=== PATIENT | female | born 1990 | race Caucasian/White ===

== ENCOUNTER 2020-03-26 11:51 | Inpatient (IN) | payer MEDICAID, OTHER ==
[~2020-03-26] VITALS: Ht 167.6 cm; Wt 91.9 kg
[~2020-03-26 11:51] MED LIST: GABA-1181 PO; QUET100T PO
[2020-03-26 12:42] LABS: BASOPHILS % (AUTO) 0.9 % (0.0-2.0); EOSINOPHILS % (AUTO) 0.8 % (1.0-6.0); HEMATOCRIT 42.2 % (36-46); HEMOGLOBIN 14.3 g/dL (12.0-16.0); LYMPHOCYTES # (AUTO) 2.3 K/uL (1.0-4.8); LYMPHOCYTES % (AUTO) 27.6 % (22.0-44.0); MEAN CORPUSCULAR HEMOGLOBIN 29.7 pg (26.0-34.0); MEAN CORPUSCULAR VOLUME 88 fL (80-100); MONOCYTES # (AUTO) 0.4 K/uL (0.1-1.0); NEUTROPHILS # (AUTO) 5.4 K/uL (1.8-7.7); NEUTROPHILS % (AUTO) 65.7 % (40.0-70.0); PLATELET COUNT (AUTO) 409 K/uL (150-450); RED BLOOD CELL COUNT(AUTO) 4.82 MIL/uL (4.00-5.20); RED CELL DISTRIBUTION WIDTH 12.7 % (11.5-14.5)
[2020-03-26 12:48] LABS: AMPHET/METH SCREEN,URINE NEGATIVE (NEGATIVE); BARBITURATE SCREEN, URINE NEGATIVE (NEGATIVE); BENZODIAZEPINES SCREEN,URINE NEGATIVE (NEGATIVE); CANNABINOID SCREEN,URINE POSITIVE (NEGATIVE); COCAINE SCREEN,URINE NEGATIVE (NEGATIVE); METHADONE SCREEN, URINE NEGATIVE (NEGATIVE); OPIATE SCREEN,URINE NEGATIVE (NEGATIVE)
[2020-03-26 12:50] LABS: PHENCYCLIDINE SCREEN,URINE NEGATIVE (NEGATIVE)
[2020-03-26 12:51] LABS: ANION GAP 9 mmol/L (8-16); CALCIUM, TOTAL 8.5 mg/dL (8.8-10.5); CARBON DIOXIDE 26 mmol/L (22-29); CHLORIDE 100 mmol/L (98-107); CREATININE 0.48 mg/dL (0.60-1.30); GLOMERULAR FILTR. RATE CALC > 60 mL/min (>60); GLUCOSE,RANDOM 107 mg/dL (70-110); POTASSIUM 4.3 mmol/L (3.5-5.1); SODIUM SERUM 135 mmol/L (136-145); UREA NITROGEN, BLOOD 7 mg/dL (7-18)
[2020-03-26 12:57] LABS: ALANINE AMINOTRANSFERASE 32 U/L (12-78); ALBUMIN 3.9 g/dL (3.4-5.0); ALKALINE PHOSPHATASE 103 U/L (46-116); ASPARTATE AMINOTRANSFERASE 18 U/L (15-37); BILIRUBIN,TOTAL 0.2 mg/dL (0.1-1.0); TOTAL PROTEIN, SERUM 8.1 g/dL (6.4-8.2)
[2020-03-26] MEDS ORDERED: GABAPENTIN 100 MG CAPSULE PO ONE (13:00)
[2020-03-26] MEDS ORDERED: CarBAMazepine 200 MG TABLET PO ONE (13:00)
[2020-03-26] MEDS ORDERED: OXcarbazepine 300 MG TABLET PO ONE ×2 (13:30→20:10)
[2020-03-26] MEDS ORDERED: ACETAMINOPHEN 325 MG TABLET PO ONE (14:45)
[2020-03-26] MEDS ORDERED: ALPRAZolam 0.5 MG TABLET PO ONE (14:45)
[2020-03-26] MEDS ORDERED: HALOPERIDOL 5 MG TABLET PO PRN (14:45)
[2020-03-26 15:25] LABS: HCG,QUANTITATIVE < 1 mIU/mL (0-6)
[2020-03-26 15:27] LABS: ACETAMINOPHEN < 2 mcg/mL (10-30)
[2020-03-26 16:10] VITALS: BP 147/95
[2020-03-26] MEDS: LORazepam 2 MG TABLET PO PRN ×2 (16:44→20:46)
[2020-03-26] MEDS ORDERED: PNEUMOCOCCAL VACCINE POLYVALENT 0.5 ML VIAL [PPSV23] IM ONE (16:45)
[2020-03-26] MEDS ORDERED: ACETAMINOPHEN 325 MG TABLET PO PRN (17:00)
[2020-03-26] MEDS ORDERED: MAG HYDROX/AL HYDROX/SIMETH ES 30 ML SUSPENSION UDCUP PO PRN (17:00)
[2020-03-26] MEDS ORDERED: ONDANSETRON HCL 4 MG TABLET PO PRN (17:00)
[2020-03-26] MEDS ORDERED: PETROLATUM,WHITE 28 GM JELLY TP PRN (17:00)
[2020-03-26] MEDS ORDERED: GuaiFENesin/D-METHORPHAN [SUGAR-FREE] 200-20MG/10 ML SYRUP UDCUP PO PRN (17:00)
[2020-03-26] MEDS ORDERED: NICOTINE 14 MG/24 HOUR PATCH TD PRN (17:00)
[2020-03-26] MEDS ORDERED: CloNIDine HCL 0.1 MG TABLET PO PRN (17:00)
[2020-03-26] MEDS ORDERED: ALBUTEROL SULFATE HFA 90 MCG/PUFF 8 GM INHALER IH PRN (17:00)
[2020-03-26] MEDS ORDERED: DOCUSATE SODIUM 100 MG CAPSULE PO PRN (17:00)
[2020-03-26] MEDS ORDERED: LOPERAMIDE HCL 2 MG CAPSULE PO PRN (17:00)
[2020-03-26] MEDS ORDERED: MAGNESIUM HYDROXIDE SUSPENSION 30 ML UDCUP PO PRN (17:00)
[2020-03-26] MEDS: NICOTINE 21 MG/24 HOUR PATCH TD SCH (17:13)
[2020-03-26] MEDS ORDERED: MIRT-89 PO (17:17)
[2020-03-26] MEDS ORDERED: OXCA300T57 PO (17:17)
[2020-03-26] MEDS ORDERED: HALO10 PO (17:17)
[2020-03-26] MEDS ORDERED: GABA-1181 PO (17:17)
[2020-03-26] MEDS ORDERED: TRAZ150T79 PO (17:17)
[2020-03-26] MEDS: GABAPENTIN 300 MG CAPSULE PO SCH (20:22)
[2020-03-26] MEDS: ZOLPIDEM TARTRATE 10 MG TABLET PO PRN (23:44)
[2020-03-27 00:01] VITALS: BP 141/92
[2020-03-27 07:54] LABS: EOSINOPHILS % (AUTO) 1.1 % (1.0-6.0); HEMATOCRIT 39.5 % (36-46); HEMOGLOBIN 13.5 g/dL (12.0-16.0); LYMPHOCYTES # (AUTO) 2.5 K/uL (1.0-4.8); LYMPHOCYTES % (AUTO) 27.9 % (22.0-44.0); MEAN CORPUSCULAR HGB CONC 34.2 G/dL (31.0-37.0); MEAN CORPUSCULAR VOLUME 88 fL (80-100); MONOCYTES # (AUTO) 0.7 K/uL (0.1-1.0); MONOCYTES % (AUTO) 7.5 % (2.0-9.0); NEUTROPHILS # (AUTO) 5.5 K/uL (1.8-7.7); NEUTROPHILS % (AUTO) 62.5 % (40.0-70.0); PLATELET COUNT (AUTO) 354 K/uL (150-450); RED CELL DISTRIBUTION WIDTH 12.9 % (11.5-14.5)
[2020-03-27] MEDS: GABAPENTIN 300 MG CAPSULE PO SCH ×4 (08:01→20:37)
[2020-03-27] MEDS: NICOTINE 21 MG/24 HOUR PATCH TD SCH (08:01)
[2020-03-27] MEDS: OXcarbazepine 300 MG TABLET PO SCH ×3 (08:01→16:45)
[2020-03-27 08:15] LABS: ALANINE AMINOTRANSFERASE 29 U/L (12-78); ALBUMIN 3.5 g/dL (3.4-5.0); ALKALINE PHOSPHATASE 90 U/L (46-116); ANION GAP 7 mmol/L (8-16); ASPARTATE AMINOTRANSFERASE 17 U/L (15-37); BILIRUBIN,TOTAL 0.3 mg/dL (0.1-1.0); CALCIUM, TOTAL 8.6 mg/dL (8.8-10.5); CARBON DIOXIDE 27 mmol/L (22-29); CHLORIDE 99 mmol/L (98-107); CHOL/HDL RATIO 3.6 (3.9-5.7); CHOLESTEROL 200 mg/dL (131-200); CREATININE 0.62 mg/dL (0.60-1.30); FREE T4 (FREE THYROXINE) 0.95 ng/dL (0.76-1.46); GLOMERULAR FILTR. RATE CALC > 60 mL/min (>60); GLUCOSE,RANDOM 95 mg/dL (70-110); HDL CHOLESTEROL 56 mg/dL (40-60); LDL CHOL (CALC.) 122 mg/dL (0-130); POTASSIUM 4.1 mmol/L (3.5-5.1); SODIUM SERUM 133 mmol/L (136-145); THYROID STIMULATING HORMONE 1.53 uIU/mL (0.36-3.74); TRIGLYCERIDES 108 mg/dL (15-150); UREA NITROGEN, BLOOD 11 mg/dL (7-18)
[2020-03-27] MEDS ORDERED: GABAPENTIN 300 MG CAPSULE PO ONE (08:45)
[2020-03-27 09:16] VITALS: BP 124/73
[2020-03-27] MEDS: ACETAMINOPHEN 325 MG TABLET PO PRN (12:37)
[2020-03-27] MEDS: ALPRAZolam 0.5 MG TABLET PO PRN ×3 (13:53→23:24)
[2020-03-27] MEDS: MIRTAZAPINE 15 MG TABLET PO SCH (20:36)
[2020-03-27 23:16] VITALS: BP 144/87
[2020-03-28] MEDS: OXcarbazepine 300 MG TABLET PO SCH ×3 (07:39→16:28)
[2020-03-28] MEDS: GABAPENTIN 300 MG CAPSULE PO SCH ×4 (07:39→20:10)
[2020-03-28] MEDS: NICOTINE 21 MG/24 HOUR PATCH TD SCH (07:45)
[2020-03-28 08:02] VITALS: BP 143/100
[2020-03-28 08:53] LABS: PHOSPHORUS 3.8 mg/dL (2.5-4.9)
[2020-03-28] MEDS ORDERED: BuPROPion HCL 75 MG TABLET PO SCH (09:00)
[2020-03-28] MEDS: ALPRAZolam 0.5 MG TABLET PO PRN ×3 (10:22→20:10)
[2020-03-28 16:00] VITALS: BP 110/69
[2020-03-28] MEDS: ACETAMINOPHEN 325 MG TABLET PO PRN (16:37)
[2020-03-28] MEDS: MIRTAZAPINE 15 MG TABLET PO SCH (20:10)
[2020-03-28] MEDS: ZOLPIDEM TARTRATE 10 MG TABLET PO PRN (21:15)
[2020-03-29 01:27] LABS: APPEARANCE,URINE CLEAR (CLEAR); BILIRUBIN,URINE NEGATIVE (NEGATIVE); GLUCOSE, URINE (UA) NEGATIVE (NEGATIVE); KETONES,URINE NEGATIVE (NEGATIVE); LEUKOCYTE ESTERASE ,URINE NEGATIVE (NEGATIVE); NITRATE,URINE NEGATIVE (NEGATIVE); OCCULT BLOOD,URINE NEGATIVE (NEGATIVE); PH,URINE 6.5 (5.0-8.0); PROTEIN,URINE NEGATIVE (NEGATIVE); UROBILINOGEN,URINE 0.2 mg/dL (<=1.0)
[2020-03-29 01:32] LABS: AMPHET/METH SCREEN,URINE NEGATIVE (NEGATIVE); BARBITURATE SCREEN, URINE NEGATIVE (NEGATIVE); BENZODIAZEPINES SCREEN,URINE POSITIVE (NEGATIVE); CANNABINOID SCREEN,URINE POSITIVE (NEGATIVE); COCAINE SCREEN,URINE NEGATIVE (NEGATIVE); METHADONE SCREEN, URINE NEGATIVE (NEGATIVE); OPIATE SCREEN,URINE NEGATIVE (NEGATIVE)
[2020-03-29 01:33] LABS: PHENCYCLIDINE SCREEN,URINE NEGATIVE (NEGATIVE)
[2020-03-29] MEDS: GABAPENTIN 300 MG CAPSULE PO SCH ×2 (06:09→12:57)
[2020-03-29] MEDS: OXcarbazepine 300 MG TABLET PO SCH ×2 (06:09→12:57)
[2020-03-29] MEDS: ALPRAZolam 0.5 MG TABLET PO PRN ×2 (07:58→08:08)
[2020-03-29 08:00] VITALS: BP 120/82
[2020-03-29] MEDS: NICOTINE 21 MG/24 HOUR PATCH TD SCH (08:22)
[2020-03-29] MEDS ORDERED: BuPROPion HCL XL 150 MG ER TABLET PO SCH (09:00)
[2020-03-29] MEDS ORDERED: BUPR-93 PO (09:58)
== END 2020-03-29 11:50 | disposition home or self-care (01) | DRG 885 ==
LOC: EMS 11:53 → 3EC 15:11 → 3EI 03-28 14:34
PROVIDERS: ADMIT Psychiatry & Neurology Child & Adolescent Psychiatry; ATTEND Psychiatry & Neurology Child & Adolescent Psychiatry
DX: F33.2 Major depressive disorder, recurrent severe without psychotic features (principal); R45.851 Suicidal ideations; E87.1 Hypo-osmolality and hyponatremia; Z59.0 Homelessness; F12.90 Cannabis use, unspecified, uncomplicated; G47.00 Insomnia, unspecified; Z91.040 Latex allergy status; F17.200 Nicotine dependence, unspecified, uncomplicated; G62.9 Polyneuropathy, unspecified; Z91.5 Personal history of self-harm; G50.0 Trigeminal neuralgia; F41.9 Anxiety disorder, unspecified
CPT/HCPCS: 80183; 80307; 83036; 83735; 84100; 84439; 84443; 87081; 99291; G0480; G0481; Q0162